=== PATIENT | male | born 1975 | race Hispanic/Latino ===

== ENCOUNTER → 2024-04-09 | Outpatient (CLI) | payer BC ==
--- NOTE | 2024-04-09 12:22 | HMCIMG ---
Testicular ultrasound with color-flow Doppler Findings: The testes are of normal size and echogenicity. The right testis measures 4 x 2.1 x 3.5 cm. The left testis measures 3.2 x 1.7 x 3.1 cm. Vascular flow is preserved to both testes- there is no evidence of torsion. There is no evidence of testicular inflammation. Small right hydrocele. The epididymis is unremarkable bilaterally. There is no evidence of varicoceles. Mid scrotal wall complex collection is seen measuring 2 cm suggestive of an abscess. Impression: Normal testes. Scrotal wall abscess suspected. Small right hydrocele.
== END | disposition home or self-care (01) ==
LOC: RAH 10:47
PROVIDERS: ATTEND Family Medicine
DX: N43.3 Hydrocele, unspecified (principal); N50.811 Right testicular pain
CPT/HCPCS: 76870